=== PATIENT | female | born 1980 | race Caucasian/White ===

== ENCOUNTER 2018-11-22 13:06 | Emergency (ER) | payer OTHER ==
[~2018-11-22] VITALS: Ht 162.6 cm; Wt 83.5 kg
[2018-11-22 13:17] VITALS: Ht 162.6 cm; Wt 83.5 kg
[2018-11-22 14:17] LABS: BASOPHIL % 0.4 % (0-2); PLATELET COUNT 219 x10^3mcL (130-400); RED CELL DISTRIBUTION WIDTH 13.5 % (11.5-14.5)
[2018-11-22 14:26] LABS: CHLORIDE SERUM 104 mmol/L (98-107); CREATININE SERUM 0.9 mg/dL (0.6-1.0); GFR1 > 60 mL/min; GLUCOSE SERUM 112 mg/dL (74-106); POTASSIUM SERUM 3.8 mmol/L (3.5-5.1); SODIUM SERUM 142 mmol/L (136-145)
[2018-11-22 14:32] LABS: ALBUMIN 3.9 g/dL (3.4-5.0); ALKALINE PHOSPHATASE 63 U/L (46-116); ALT/SGPT 20 U/L (14-59); AST/SGOT 16 U/L (15-37); BILIRUBIN TOTAL 0.6 mg/dL (0.20-1.00); CHOLESTEROL 158 mg/dL (<200); HDL CHOLESTEROL 47 mg/dL (40-60); PHOSPHOROUS 3.3 mg/dL (2.5-4.9); TOTAL PROTEIN, SERUM 7.5 g/dL (6.4-8.2); URIC ACID 6.4 mg/dL (2.6-6.0)
[2018-11-22 15:09] LABS: rbc morphology (normal/abnorm) NORMAL (NORMAL)
--- NOTE | 2018-11-22 15:39 | NUR ---
JOCELYN [place] CHARTED IN ERROR, WRONG PT.
[2018-11-22 15:44] VITALS: BP 115/93
== END 2018-11-22 15:44 | disposition home or self-care (01) ==
LOC: ED 13:06
PROVIDERS: Emergency Medicine
DX: R00.2 Palpitations (principal); R07.89 Other chest pain; R06.02 Shortness of breath; Z98.890 Other specified postprocedural states
CPT/HCPCS: 36415; 85378; Q0092

== ENCOUNTER 2019-01-05 16:37 | Emergency (ER) | payer OTHER ==
[~2019-01-05] VITALS: Ht 162.6 cm; Wt 78.0 kg
[2019-01-05 16:39] VITALS: Ht 162.6 cm; Wt 78.0 kg
[2019-01-05 19:58] VITALS: BP 122/84
== END 2019-01-05 19:58 | disposition home or self-care (01) ==
LOC: ED 16:37
DX: S39.012A Strain of muscle, fascia and tendon of lower back, initial encounter (principal); X58.XXXA Exposure to other specified factors, initial encounter; Y93.89 Activity, other specified; Y92.89 Other specified places as the place of occurrence of the external cause; Y99.8 Other external cause status
CPT/HCPCS: J1885